=== PATIENT | male | born 1950 | race Two or more races ===

== ENCOUNTER → 2022-07-27 08:49 | Outpatient (BNVA) | payer OTHER, SELFPAY | PROVIDERS: PCP Internal Medicine; Visit Provider Psychiatry & Neurology Neurology | DX: R25.1 Tremor, unspecified (principal) | CPT/HCPCS: 99202 ==

== ENCOUNTER 2022-10-20 08:39 | Outpatient (REF) | payer OTHER, SELFPAY ==
--- NOTE | ~2022-10-20 | MR_ITS ---
EXAMINATION: MR BRAIN WITHOUT CONTRAST CLINICAL INFORMATION: Tremor COMPARISON: None TECHNIQUE: Multiplanar multisequence MR imaging of the brain was obtained without intravenous contrast. FINDINGS: There is no acute infarct on diffusion-weighted imaging. There is no intracranial hemorrhage on iron-sensitive imaging. No extra-axial collection or mass effect/herniation. Scattered periventricular and deep white matter T2 FLAIR hyperintensities consistent with mild underlying microangiopathy. No hydrocephalus. The ventricles are normal in morphology and size. The major flow voids at the skull base are preserved. The midline structures are normal. The cerebellar tonsils are normally positioned. The craniocervical junction is normal. Marrow signal is within normal limits. The visualized soft tissues are without significant abnormality. No signal abnormality within the paranasal sinuses or within the mastoid air cells. MR/MR head/brain wo con IMPRESSION: Mild chronic white matter microangiopathy. Otherwise unremarkable noncontrast MRI of the brain.
== END 2022-10-20 08:40 | disposition home or self-care (01) ==
LOC: HO.MRI 08:39
PROVIDERS: PCP Internal Medicine; Visit Provider Psychiatry & Neurology Neurology
DX: R25.1 Tremor, unspecified (principal)
CPT/HCPCS: 70551

== ENCOUNTER → 2022-10-28 08:52 | Outpatient (BNVA) | payer OTHER, SELFPAY | PROVIDERS: PCP Internal Medicine; Visit Provider Psychiatry & Neurology Neurology | DX: R25.1 Tremor, unspecified (principal) | CPT/HCPCS: 99212 ==

== ENCOUNTER 2023-08-06 13:47 | Outpatient (AMB) | payer OTHER, SELFPAY ==
--- NOTE | 2023-08-06 14:10 | A.OFFVIS_ITS ---
Intake Vital Signs 08/06/23 14:11 Height 5 ft 6 in Weight 214 lb BMI 34.5 BP 150/82 H Blood Pressure Location Rt brachial Position Sitting Respiration 17 Pulse 82 Pulse Source Pulse Oximeter Pulse Oximetry (%) 97 Oxygen Delivery Method Room Air Intake Visit Reasons: 3m Progressive vince hand/CONF Intake Note: Pt presents to the office for 3 month follow up for tremors. Supervisor Pipe Finishing Required: No Allergies No Known Allergies Allergy (Verified 08/06/23 14:10) Medication List - Last Reconciled 08/06/23 by Yamileth Adam MD aspirin 81 mg PO DAILY omega-3 fatty acids 1,000 mg PO DAILY rasagiline 1 mg PO DAILY simvastatin 20 mg PO BEDTIME tamsulosin 0.4 mg PO DAILY valsartan 320 mg PO DAILY HPI HPI Comments History of Present Illness Details 73y/o right handed male comes for follow up of tremor predominant Parkinsons disease. His SHAYLA scan was positive for Parkinsons. He started noticing tremors in bilateral hands and legs ( milder ) about 3 years ago but noticed increased severity in the pats 1 year.The left UE tremors are worse.The tremors are mostly at rest.He has difficulty holding a cup of coffee.No change in his voice, memory, sleep. He has occasional drooling. He cannot write anymore. He has trouble using fork . He can dress , shower with no issues. His denies any major gait issues or falls. No hallucinations , nausea, dizziness, diplopia. He has constipation.He denies neck or back pain. His father had tremors when older. He denies head injury. [facility] Medical History (Updated 08/06/23 @ 14:21 by Yamileth Adam MD) Parkinson's disease without dyskinesia Adenomatous colon polyp Diverticulosis Hyperlipidemia HTN (hypertension) BPH (benign prostatic hyperplasia) Pulmonary nodule Aortic aneurysm Surgical History H/O transurethral resection of prostate H/O hernia repair H/O colonoscopy Family History Father HTN (hypertension) Social History Alcohol intake: current Patient Tobacco Use Status: Never used Tobacco Physical Exam Vital Signs: Last Vital Signs Pulse 82 08/06/23 14:11 Resp 17 08/06/23 14:11 BP 150/82 H 08/06/23 14:11 Pulse Ox 97 08/06/23 14:11 Oxygen Delivery Method Room Air 08/06/23 14:11 BMI result Body Mass Index 34.5 Const General: cooperative, healthy appearing and comfortable Nutritional Appearance: overweight Orientation/consciousness: patient oriented x3 Eyes Pupils: Equal, round and reactive pupils present Neuro Other: Left UE high amplitude rest tremors , mild postural and action FFM decreased milldy L>R vince cog wheel rigidity 2 Foot taps mildly decreased Mild decreased blink and facial expression General: patient oriented x3, moves all extremities and no focal motor deficits Cranial nerves: Yes Facial sensation intact/muscles of mastication intact, Yes Equal, round and reactive pupils present, Yes Bilaterally intact EOM present, Yes Nystagmus not present, Yes Normal facial strength present, Yes Midline tongue present and Yes Ability to bilaterally elevate shoulders present Cognition (Neuro): normal cognition Gait exam (Neuro): Other gait observations present (decreased arm swings L>R) Motor exam (neuro): 5/5 motor strength present throughout Coordination: [id number]-[id number] test normal Assessment & Plan Assessment & Plan (1) Parkinson's disease without dyskinesia: Comment: Tremors predominant - Left UE Code(s): G20.A1 - Parkinson's disease without dyskinesia, without mention of fluctuations Plan Continue rasagilline 1mg qd I will retrial him on carbidopa/levodopa 25/100 tid Medications: New carbidopa-levodopa 25-100 mg (Sinemet) 1 tab PO TID 90 tabs 3RF Coding Level of Care Code Est Pt Level 4 (29926) Diagnoses Parkinson's disease without dyskinesia G20.A1
[2023-08-06 14:11] VITALS: BP 150/82; PULSE 82; RESP 17; O2SAT 97; BMI 34.5
== END 2023-08-06 14:32 | disposition home or self-care (01) ==
PROVIDERS: PCP Internal Medicine; Visit Provider Psychiatry & Neurology Neurology
DX: G20.A1 Parkinson's disease without dyskinesia, without mention of fluctuations (principal)
CPT/HCPCS: 99214

== ENCOUNTER → 2023-08-06 13:47 | Outpatient (BNVA) | payer OTHER, SELFPAY | PROVIDERS: PCP Internal Medicine; Visit Provider Psychiatry & Neurology Neurology | DX: G20.A1 Parkinson's disease without dyskinesia, without mention of fluctuations (principal) | CPT/HCPCS: 99212 ==

== ENCOUNTER 2024-08-21 10:10 | Outpatient (AMB) | payer OTHER, SELFPAY ==
--- NOTE | 2024-08-21 10:14 | A.OFFVIS_ITS ---
Vital Signs 08/21/24 10:16 Height 5 ft 6 in Weight 214 lb BMI 34.5 BP 134/82 Blood Pressure Location Rt brachial Position Sitting Pulse 88 Pulse Source Pulse Oximeter Pulse Oximetry (%) 98 Oxygen Delivery Method Room Air Intake Visit Reasons: 2 month F/U Intake Note: patient following up on med trial carbidopa levodopa. Gas Main Fitter Helper Required: Yes Gas Main Fitter Helper Services: Gas Main Fitter Helper Offered & Declined Gas Main Fitter Helper Name: Kayla Daughter Allergies No Known Allergies Allergy (Verified 08/21/24 10:16) HPI Comments Details: 74y/o right handed male comes for follow up of tremor predominant Parkinsons kathia khang. His SHAYLA scan was positive for Parkinsons. He does not think his tremors have improved with medications. History from last visit- He started noticing tremors in bilateral hands and legs ( milder ) about 3 years ago but noticed increased severity in the pats 1 year.The left UE tremors are worse.The tremors are mostly at rest.He has difficulty holding a cup of coffee.No change in his voice, memory, sleep. He has occasional drooling. He cannot write anymore. He has trouble using fork . He can dress , shower with no issues. His denies any major gait issues or falls. No hallucinations , nausea, dizziness, diplopia. He has constipation.He denies neck or back pain. His father had tremors when older. He denies head injury. [facility] Medical History Parkinson's disease without dyskinesia Adenomatous colon polyp Diverticulosis Hyperlipidemia HTN (hypertension) BPH (benign prostatic hyperplasia) Pulmonary nodule Aortic aneurysm Surgical History H/O transurethral resection of prostate H/O hernia repair H/O colonoscopy Family History Father HTN (hypertension) Social History Alcohol intake: current Patient Tobacco Use Status: Never used Tobacco Physical Exam Vital Signs: Last Vital Signs Pulse 88 08/21/24 10:16 BP 134/82 08/21/24 10:16 Pulse Ox 98 08/21/24 10:16 Oxygen Delivery Method Room Air 08/21/24 10:16 BMI result Body Mass Index 34.5 Const General: cooperative, healthy appearing and comfortable Nutritional Appearance: overweight Orientation/consciousness: patient oriented x3 Eyes Pupils: Equal, round and reactive pupils present Neuro Other: Left UE high amplitude rest tremors , mild postural and action FFM decreased milldy L>R vince cog wheel rigidity 2 Foot taps mildly decreased Mild decreased blink and facial expression General: patient oriented x3, moves all extremities and no focal motor deficits Cranial nerves: Yes Facial sensation intact/muscles of mastication intact, Yes Equal, round and reactive pupils present, Yes Bilaterally intact EOM present, Yes Nystagmus not present, Yes Normal facial strength present, Yes Midline tongue present and Yes Ability to bilaterally elevate shoulders present Cognition (Neuro): normal cognition Gait exam (Neuro): Other gait observations present (decreased arm swings L>R) Motor exam (neuro): 5/5 motor strength present throughout Coordination: [id number] test normal Assessment & Plan Assessment & Plan (1) Parkinson's disease without dyskinesia: Comment: Tremors predominant - Left UE Code(s): G20.A1 - Parkinson's disease without dyskinesia, without mention of fluctuations Category: Medical Qualifiers: Fluctuating manifestations: without fluctuating manifestations Qualified Code(s): G20.A1 - Parkinson's disease without dyskinesia, without mention of fluctuations Plan Continue rasagilline 1mg qd Increase carbidopa/levodopa 25/100 2 tabs tid Refer to for eval for DBS Discussed about MRI guided Ultrasound therapy - will refer to [place] Orders: Referrals Neurosurgery Referral G20.A1 - Parkinson's disease without dyskinesia, without mention of fluctuations Neurosurgery Referral G20.A1 - Parkinson's disease without dyskinesia, without mention of fluctuations Medications: Changed From carbidopa-levodopa 25-100 mg (Sinemet) 1 tab PO TID 90 tabs 3RF To carbidopa-levodopa 25-100 mg (Sinemet) 2 tabs PO TID 180 tabs 3RF Coding Level of Care Code Est Pt Level 4 (43247) Complex EM visit Add On G2211 Diagnoses Parkinson's disease without dyskinesia or fluctuating manifestations G20.A1 Fluctuating manifestations: without fluctuating manifestations
[2024-08-21 10:16] VITALS: BP 134/82; PULSE 88; O2SAT 98; BMI 34.5
--- OUTSIDE RECORDS SUMMARY | 2024-08-21 11:33 | XMS_ITS | Clinical Summary ---
Author Organization [address] Address [address], [place] Phone Care Team Providers Care Shafting Cleaner Name Role Phone Tiffany Gray Primary Care Provider [phone] Allergies No known active allergies Medications rasagiline (AZILECT) 1 mg tablet Take 1 Tablet by mouth daily. Active simvastatin (ZOCOR) 20 mg tablet Take 1 Tablet by mouth at bedtime. 02/03/2024 Active tamsulosin (FLOMAX) 0.4 mg 24 hr capsule Take 0.4 mg by mouth at bedtime. 12/25/2021 Active aspirin 81 mg EC tablet Take 1 Tab by mouth daily. 05/05/2019 Active ASCORBIC ACID, VITAMIN C, ORAL Take?by mouth daily. Active carbidopa-levodo pa (SINEMET) 25-100 mg per tablet Take 1 tablet by mouth. 04/04/2024 Active amLODIPine-valsa rtan (EXFORGE) 5-320 mg per tablet Take 1 tablet by mouth 1 (one) time each day. Take 1 Tablet by mouth daily. 30 each 2 04/13/2024 Active omega-3 acid ethyl esters (LOVAZA) 1 gram capsule Take 2,000 mg by mouth daily. 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 Santos - 07/22/15 - cystoscopy at next visit, ultrasound to rule out nephrolithiasis, PSA pending; follow-up 6 weeks 08/23/15 - no new findings on cystoscopy, Flomax and Proscar prescribed, urodynamic studies ordered, consider TURP 09/16/15 - continue with TURP as scheduled 10/11/15 - TURP performed 12/02/15 - Cipro 500 mg twice a day for 10 days, follow-up 2-3 weeks 12/19/15 - urine studies ordered, follow-up 6 weeks 01/28/16 - dysuria resolved, followup in [address] Santos 08/20/16 - cut down coffee intake; follow-up 6 months 02/25/17 - consider sleep study, follow-up one year 03/07/18 - doing well, PSA pending, follow-up one year if stable 03/16/2019 - good bladder emptying, follow-up 1 year Diverticulosis 04/10/2015 Overview (02/28/2024): Colonoscopy 06/21/2014 Hernia of abdominal cavity 09/25/2014 Tubular adenoma of colon 06/26/2014 Overview (02/28/2024): 06/24 - repeat colonoscopy recommended in 5 years 06/29 - colonoscopy, repeat in 5 years HTN (hypertension) 10/31/2013 Hyperlipidemia 10/31/2013 Encounters Date Type Department Care Team Description 07/18/2024 Telephone Internal Medicine - [facility] [address] [facility] [place] [address] Tiffany Gray DO prior auth from Last 3 Months Immunizations Name Administration Dates Next Due Influenza Quadravalent, MDCK , 0.5ml, preservative free (Flucelvax) 6mo and older 2022 Influenza trivalent, 0.5mL ( Fluad) 65yo and older 06/14/2023,04/15/2021,02/09/2020,04/19,02/28/2018,02/22/2017 Influenza trivalent, 0.5mL, preservative free (Fluarix; FluLaval; Fluzone) ages 6mo and older (Afluria) 3 years and older 02/10/2016,02/04/2015,03/08/2014 Pfizer SARS-CoV-2 COVID-19, mRNA, LNP-S, preservative free 02/14/2021,08/08/2020,07/18/2020 Pneumococcal conjugate 13 va lent (Prevnar 13, PCV13) 2mo and older 08/28/2016,02/10/2016 Pneumococcal polysaccharide 23 valent (Pneumovax 23) 2yo and older 03/08/2014 Tdap Tetanus diptheria acell ular pertussis (Boostrix; Adacel) 7yo and older 03/08/2014 Zoster Live 03/08/2014 Surgical History Surgery Date Site/Laterality Comments OTHER SURGICAL HISTORY PROCEDURE: ---- OTHER ----; COMMENT: Low back surgery COLONOSCOPY 2014 PROCEDURE: HISTORICAL COLONOSCOPY; COMMENT: colon polyp, diverticulosis OTHER SURGICAL HISTORY 10/11/15 PROCEDURE: ---- OTHER ----; COMMENT: TURP HERNIA REPAIR 10/27/2016 Bilateral PROCEDURE: HISTORICAL HERNIA REPAIR/ING OTHER SURGICAL HISTORY 02/10/2018 PROCEDURE: ---- OTHER ----; COMMENT: Eyelid surgery Medical History Medical History Date Comments HTN (hypertension) 10/31/2013 DX:HTN (hyper tension) Hyperlipidemia 10/31/2013 DX:Hyperlipidemi a Hernia of abdominal cavity 09/25/2014 DX:He rnia of abdominal cavity Diverticulosis 04/10/2015 DX:Diverticulosi s; COMMENT: Colonoscopy 06/21/2014 Tubular adenoma of colon 06/26/2014 DX:Tubu lar adenoma of colon; COMMENT: 06/24 - repeat colonoscopy recommended in 5 years 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 DX:C oncealed accessory pathway Family History Medical History Relation Name Comments No Known Problems Father No Known Problems Mother Relation Name Status Comments Father (Age 78) HTN Mother (Age 93) Healthy Social History Tobacco Use Types Packs/Day Years Used Date Smoking Tobacco: Never Smokeless Tobacco: Never Tobacco Cessation:Counseling Given: Not Answered Alcohol Use Standard Drinks/Week Comments No 0 (1 standard drink = 0.6 oz pur e alcohol) Sex and Gender Information Value Date Recorded Sex Assigned at Not on file Legal Sex Male 8:26 AM EST Gender Identity Not on file Sexual Orientation Not on file Obstetrics History Last Filed Vital Signs Vital Sign Reading Time Taken Comments Blood Pressure 135/82 04/13/2024 11:17 AM EST au to Pulse 88 04/13/2024 11:17 AM EST Temperature - - Respiratory Rate - - Oxygen Saturation - - Inhaled Oxygen Concentration - - Weight 100 kg (220 lb 9.6 oz) 04/13/2024 11:17 A M EST Height 167.6 cm (5' 6 ) 04/13/2024 11:17 AM EST Body Mass Index 35.61 04/13/2024 11:17 AM EST Plan of Treatment Upcoming Encounters Date Type Department Care Team (Late st Contact Info) Description 09/20/2024 10:30 AM EDT Appointment [facility] Endoscopy [address] [place] [address] Aramis Barragan DO [address] [facility] [address] [place] [address] 10/12/2024 11:00 AM EDT [facility] [address] [place] [address] Tiffany Gray DO [address] [place] [address] Health Maintenance Due Date Last Done Comments Depression Screening 04/18/2022 Falls Risk Assessment 04/18/2022 Medicare Annual Wellness Visit 04/18/2022 Social Influencers of Health Screening 04/18/2022 RSV Immunization Adult Patients (1 - 1-dose 75+ series) 2023 COVID-19 Vaccine ( season) 2024 02/14/2021, 08/08/2020, 07/18/2020 DTaP,Tdap,and Td Vaccines (2 - Td or Tdap) 03/08/2024 03/08/2014 Colorectal Cancer Screening: Colonoscopy 06/12/2024 06/12/2019, 06/21/2014 Influenza Vaccine (Season Ended) 2025 06/14/2023, 2022, 04/15/2021, Additional history exists Hypertension/CHF/CAD Annual BMP Blood Test 04/13/2025 04/13/2024, 07/13/2023 Cholesterol Screening (Lipid Panel) 2027 2022 Hepatitis C Screening Completed 03/07/2014 Pneumococcal Vaccine: 50+ Years Completed 08/28/2016, 02/10/2016, 03/08/2014 Zoster Vaccines Completed 12/22/2022, 11/2022, 03/08/2014 HIB Vaccines Aged Out No longer eligi ble based on patient's age to complete this topic HPV Vaccines Aged Out No longer eligi ble based on patient's age to complete this topic Hepatitis A Vaccines Aged Out No long er eligible based on patient's age to complete this topic Hepatitis B Vaccines Aged Out No long er eligible based on patient's age to complete this topic IPV Vaccines Aged Out No longer eligi ble based on patient's age to complete this topic MMR Vaccines Aged Out No longer eligi ble based on patient's age to complete this topic Meningococcal ACWY Vaccine Aged Out N o longer eligible based on patient's age to complete this topic Meningococcal B Vaccine Aged Out No l onger eligible based on patient's age to complete this topic RSV Immunization Patients Under 20 months Aged Out No longer eligible based on patient's age to complete this topic Varicella Vaccines Aged Out No longer eligible based on patient's age to complete this topic Procedures Procedure Name Priority Date/Time Associated Diagnosis Comments BASIC METABOLIC PANEL Routine 04/13/2024 12:16 PM EST Hypertension, unspecified type LIPID PANEL Routine 2022 COLONOSCOPY Routine 06/12/2019 HEPATITIS C SCREENING Routine 03/07/2014 from Last 3 Months or Most Recently Relevant to Health Maintenance Results * (ABNORMAL) Basic metabolic panel (04/13/2024 12:16 PM EST) Sodium 142 133 - 145 mmol/L LAB CHEMISTRY METHOD 04/13/2024 3:44 PM [facility] Potassium 4.3 3.5 - 5.5 mmol/L LAB CHEMISTRY METHOD 04/13/2024 3:44 PM [facility] Chloride 109 96 - 110 mmol/L LAB CHEMISTRY METHOD 04/13/2024 3:44 PM [facility] CO2 28 21 - 32 mmol/L LAB CHEMISTRY METHOD 04/13/2024 3:44 PM [facility] Anion Gap 5 3 - 11 LAB CHEMISTRY METHOD 04/13/2024 3:44 PM [facility] Glucose 105(H) 70 - 100 mg/dL LAB CHEMISTRY METHOD 04/13/2024 3:44 PM [facility] BUN 20 5 - 25 mg/dL LAB CHEMISTRY METHOD 04/13/2024 3:44 PM [facility] Creatinine 1.06 0.70 - 1.30 mg/dL LAB CHEMISTRY METHOD 04/13/2024 3:44 PM [facility] eGFR 73 >=60 mL/min/1. 73m2 LAB CHEMISTRY METHOD 04/13/2024 3:44 PM [facility] Comment:Calculation based on the??Chronic Kidney Disease Epidemiology Collaboration (CKD-EPI) equation refit??without adjustment for race. BUN/Creatinine Ratio 18.9 LAB CHEMISTRY METHOD 04/13/2024 3:44 PM [facility] Calcium 10.1 8.5 - 10.5 mg/dL LAB CHEMISTRY METHOD 04/13/2024 3:44 PM [facility] Blood Venous blood specimen / Unknown Venipuncture / Unknown 04/13/2024 12:16 PM EST 04/13/2024 12:16 PM EST Tiffany Jaloudi DO LAB BLOOD ORDERABLES Final Res ult [facility] [address] [place] [address], * Lipid panel (2022) Pathologist [facility] LDL/HDL Ratio 3 0 - 4 Triglycerides 123 0 - 150 mg/dL Cholesterol 140 0 - 200 mg/dL HDL 51 >=40 mg/dL LDL Cholesterol 65 0 - 100 mg/dL Blood Venous blood specimen / Unknown Historical Provider MD LAB BLOOD ORDERABLES Dee l Result * Colonoscopy (06/12/2019) Pathologist [facility] Colonoscopy No interpretation with ,abstracted Anatomical Region Laterality Modality Other Historical Provider HEALTH MAINTENANCE Final Result * Hepatitis C Screening (03/07/2014) Pathologist [facility] Hepatitis C Screening Abstracted Historical Provider HEALTH MAINTENANCE Final Result from Last 3 Months or Most Recently Relevant to Health Maintenance Insurance [employer] MEDICARE Member Subscriber Plan / Payer (Ef fective 2024-Present) Name:Fausto Bhakta Relation to Subscriber:Self Name:Fausto Bhakta Payer ID:[id number] Group ID:[id number] Type:Not on file Address: [address] [facility] [place] [address] Care Teams Shafting Cleaner Relationship Specialty Start Date End Date Tiffany Gray DO [address] [place] [address] PCP - General 02/23/24
== END 2024-08-21 10:35 | disposition home or self-care (01) ==
LOC: HO.HSMS 10:11
PROVIDERS: PCP Internal Medicine; Visit Provider Psychiatry & Neurology Neurology
DX: G20.A1 Parkinson's disease without dyskinesia, without mention of fluctuations (principal)
CPT/HCPCS: 99214; G2211

== ENCOUNTER → 2024-08-21 10:10 | Outpatient (BNVA) | payer OTHER, SELFPAY | PROVIDERS: PCP Internal Medicine; Visit Provider Psychiatry & Neurology Neurology | DX: G20.A1 Parkinson's disease without dyskinesia, without mention of fluctuations (principal) | CPT/HCPCS: 99212 ==

== ENCOUNTER 2025-02-21 10:46 | Outpatient (AMB) | payer OTHER, SELFPAY ==
[2025-02-21 10:48] VITALS: BP 150/86; PULSE 72; O2SAT 95; BMI 36.7
--- NOTE | 2025-02-21 10:48 | A.OFFVIS_ITS ---
Vital Signs 02/21/25 10:48 Height 5 ft 6 in Weight 227 lb 2 oz BMI 36.7 BP 150/86 H Blood Pressure Location Rt brachial Position Sitting Pulse 72 Pulse Source Pulse Oximeter Pulse Oximetry (%) 95 Oxygen Delivery Method Room Air Intake Visit Reasons: 6 mnts f/u Intake Note: Follow up Parkinson's disease without dyskinesia, without mention of fluctuations, Tremor UE Concrete [employer] Mounted Required: Yes Concrete [employer] Mounted Services: Concrete [employer] Mounted Offered & Declined Concrete Mixer Loader Truck Mounted Name: Daughter to interprep Accompanied by: Daughter Allergies No Known Allergies Allergy (Verified 02/21/25 10:48) Medication List - Last Reconciled 02/21/25 by Yamileth Adam MD aspirin 81 mg PO DAILY carbidopa-levodopa 25-100 mg 2 tabs PO TID omega-3 fatty acids 1,000 mg PO DAILY rasagiline 1 mg PO DAILY simvastatin 20 mg PO BEDTIME tamsulosin 0.4 mg PO DAILY valsartan 320 mg PO DAILY HPI Comments Details: 74y/o right handed male comes for follow up of tremor predominant Parkinsons disease. His SHAYLA scan was positive for Parkinsons. He does not think his tremors have improved with medications.He still has tremors but is independent in all his ADLS . he was seen by at [facility] for possible DBS - he suggested to maximize his meds first. History from last visit- He started noticing tremors in bilateral hands and legs ( milder ) about 3 years ago but noticed increased severity in the pats 1 year.The left UE tremors are worse.The tremors are mostly at rest.He has difficulty holding a cup of coffee.No change in his voice, memory, sleep. He has occasional drooling. He cannot write anymore. He has trouble using fork . He can dress , shower with no issues. His denies any major gait issues or falls. No hallucinations , nausea, dizziness, diplopia. He has constipation.He denies neck or back pain. His father had tremors when older. He denies head injury. [facility] Medical History Parkinson's disease without dyskinesia Adenomatous colon polyp Diverticulosis Hyperlipidemia HTN (hypertension) BPH (benign prostatic hyperplasia) Pulmonary nodule Aortic aneurysm Surgical History H/O transurethral resection of prostate H/O hernia repair H/O colonoscopy Family History Father HTN (hypertension) Social History Alcohol intake: current Patient Tobacco Use Status: Never used Tobacco Physical Exam Vital Signs: Last Vital Signs Pulse 72 02/21/25 10:48 BP 150/86 H 02/21/25 10:48 Pulse Ox 95 02/21/25 10:48 Oxygen Delivery Method Room Air 02/21/25 10:48 BMI result Body Mass Index 36.7 Const General: cooperative, healthy appearing and comfortable Nutritional Appearance: overweight Orientation/consciousness: patient oriented x3 Eyes Pupils: Equal, round and reactive pupils present Neuro Other: Left UE high amplitude rest tremors , mild postural and action FFM decreased milldy L>R vince cog wheel rigidity 2 Foot taps mildly decreased Mild decreased blink and facial expression General: patient oriented x3, moves all extremities and no focal motor deficits Cranial nerves: Yes Facial sensation intact/muscles of mastication intact, Yes Equal, round and reactive pupils present, Yes Bilaterally intact EOM present, Yes Nystagmus not present, Yes Normal facial strength present, Yes Midline tong ue present and Yes Ability to bilaterally elevate shoulders present Cognition (Neuro): normal cognition Gait exam (Neuro): Other gait observations present (decreased arm swings L>R) Motor exam (neuro): 5/5 motor strength present throughout Coordination: [id number]-at-[id number] test normal Assessment & Plan Assessment & Plan (1) Parkinson's disease without dyskinesia: Comment: Tremors predominant - Left UE Code(s): G20.A1 - Parkinson's disease without dyskinesia, without mention of fluctuations Category: Medical Qualifiers: Fluctuating manifestations: without fluctuating manifestations Qualified Code(s): G20.A1 - Parkinson's disease without dyskinesia, without mention of fluctuations Plan Continue rasagilline 1mg qd carbidopa/levodopa 25/100 2 tabs tid for eval for DBS- notes for review he sleeps well and declines sleep study Medications: Refilled carbidopa-levodopa 25-100 mg 2 tabs PO TID 540 tabs 0RF rasagiline 1 mg PO DAILY 90 tabs 1RF Coding Level of Care Code Est Pt Level 4 (76078) Complex EM visit Add On G2211 Diagnoses Parkinson's disease without dyskinesia or fluctuating manifestations G20.A1 Fluctuating manifestations: without fluctuating manifestations
--- OUTSIDE RECORDS SUMMARY | 2025-02-21 12:59 | XMS_ITS | Clinical Summary ---
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 Active ASCORBIC ACID, VITAMIN C, ORAL Take by mouth daily. Active carbidopa-levod opa (SINEMET) 25-100 mg per tablet Take 1 tablet by mouth. 04/04/2024 Active omega-3 acid ethyl esters (LOVAZA) 1 gram capsule Take 2,000 mg by mouth daily. 90 capsule 1 07/17/2024 Active amLODIPine-vals pepe (EXFORGE) 5-320 mg per tablet Take 1 tablet by mouth 1 (one) time each day. Take 1 Tablet by mouth daily. 90 each 1 10/12/2024 5 Active aspirin 81 mg EC tablet Take 1 tablet (81 mg total) by mouth 1 (one) time each day. Take 1 Tab by mouth daily. 90 each 1 10/12/2024 5 Active simvastatin (ZOCOR) 20 mg tablet Take 1 tablet (20 mg total) by mouth at bedtime. at bedtime. 90 each 1 10/12/2024 5 Active tamsulosin (FLOMAX) 0.4 mg 24 hr capsule Take 1 capsule (0.4 mg total) by mouth 1 (one) time each day. Take 0.4 mg by mouth at bedtime. 90 each 1 10/12/2024 5 Active Active Problems Problem Noted Date Diagnosed Date Class 2 obesity 01/04/2023 Parkinson's disease ([facility] V24, [facility] V28) 0 01/04/2023 Ascending aortic aneurysm ([facility] V24) 07/23/19 Overview (02/28/2024): 4.4 cm, CT [...] Encounters Date Type Department Care Team Description 12/22/2024 Telephone Internal Medicine - [address] [place] [address] Tiffany Gray DO from Last 3 Months Immunizations Immunization Administration Dates Next Due Influenza Quadravalent, MDCK , 0.5ml, preservative free (Flucelvax) 6mo and older 2022 Influenza trivalent, 0.5mL ( Fluad) 65yo and older 06/14/2023,04/15/2021,02/09/2020,04/19,02/28/2018,02/22/2017 Influenza trivalent, 0.5mL, preservative free (Fluarix; FluLaval; Fluzone) ages 6mo and older (Afluria) 3 years and older 02/10/2016,02/04/2015,03/08/2014 Catmoji SARS-CoV-2 COVID-19, mRNA, LNP-S, preservative free 02/14/2021,08/08/2020,07/18/2020 [...] accessory pathway 08/07/2015 DX:C oncealed accessory pathway Parkinson's disease (tremor, stiffness, slow motion, unstable posture) ([facility] V24, [facility] V28) Family History Medical History Relation Name Comments No Known Problems Father No Known Problems Mother Relation Name Status Comments Father (Age 78) HTN Mother (Age 93) Healthy Social History Tobacco Use Types Packs/Day Years Used Date Smoking Tobacco: Never Smokeless Tobacco: Never Tobacco Cessation:Counseling Given: Not Answered Alcohol Use Standard Drinks/Week Comments No 0 (1 standard drink = 0.6 oz pur e alcohol) Interpersonal Safety Answer Date Record ed Physical Abuse Unrecognized value 09/20/2024 Verbal Abuse Unrecognized value 09/20/2024 Sex and Gender Information Value Date Recorded Sex Assigned at Not on file Legal Sex Male 8:26 AM EST Gender Identity Not on file Sexual Orientation Not on file Obstetrics History Last Filed Vital Signs Vital Sign Reading Time Taken Comments Blood Pressure 131/75 09/20/2024 11:29 AM EDT Pulse 75 09/20/2024 11:29 AM EDT Temperature 36.9 C (98.4 F) 09/20/2024 11:08 AM EDT Respiratory Rate 18 09/20/2024 11:29 AM EDT Oxygen Saturation 99% 09/20/2024 11:29 AM EDT Inhaled Oxygen Concentration - - Weight 97.1 kg (214 lb) 09/20/2024 10:44 AM EDT Height 167.6 cm (5' 6 ) 09/20/2024 10:44 AM EDT Body Mass Index 34.54 09/20/2024 10:44 AM EDT Plan of Treatment Upcoming Encounters Date Type Department Care Team (Late st Contact Info) Description 04/13/2025 9:30 AM EST Office Visit Internal Medicine - [address] [phone] Ruby Welch NP [address] [place] [id number] Health Maintenance Due Date Last Done Comments Medicare Annual Wellness Visit 04/18/2022 Social Influencers of Health Screening 04/18/2022 RSV Immunization Adult Patients (1 - 1-dose 75+ series) 2023 DTaP,Tdap,and Td Vaccines (2 - Td or Tdap) 03/08/2024 03/08/2014 Depression Screening 05/10/2024 COVID-19 Vaccine ( - season) 2025 02/14/2021, 08/08/2020, 07/18/2020 Influenza Vaccine (#1) 2025 , 2022, 04/15/2021, Additional history exists Falls Risk Assessment 09/20/2025 09/20/2024 Hypertension/CHF/CAD Annual BMP Blood Test 10/12/2025 10/12/2024, 04/13/2024, 07/13/2023 Cholesterol Screening (Lipid Panel) 2027 2022 Colorectal Cancer Screening: Colonoscopy 09/20/2029 09/20/2024, 06/12/2019, 06/21/2014 Hepatitis C Screening Completed 03/07/2014 Pneumococcal Vaccine: [...] Associated Diagnosis Comments BASIC METABOLIC PANEL Routine 10/12/2024 11:41 AM EDT Hypertension, unspecified type COLONOSCOPY Routine 09/20/2024 11:07 AM EDT Colon cancer screening LIPID PANEL Routine 2022 HEPATITIS C SCREENING Routine 03/07/2014 from Last 3 Months or Most Recently Relevant to Health Maintenance Results * (ABNORMAL) Basic metabolic panel (10/12/2024 11:41 AM EDT) Sodium 140 133 - 145 mmol/L LAB CHEMISTRY METHOD 10/12/2024 3:25 PM [facility] Potassium 4.1 3.5 - 5.5 mmol/L LAB CHEMISTRY METHOD 10/12/2024 3:25 PM [facility] Chloride 104 96 - 110 mmol/L LAB CHEMISTRY METHOD 10/12/2024 3:25 PM [facility] CO2 28 21 - 32 mmol/L LAB CHEMISTRY METHOD 10/12/2024 3:25 PM [facility] Anion Gap 8 3 - 11 LAB CHEMISTRY METHOD 10/12/2024 3:25 PM [facility] Glucose 103(H) 70 - 100 mg/dL LAB CHEMISTRY METHOD 10/12/2024 3:25 PM [facility] BUN 16 5 - 25 mg/dL LAB CHEMISTRY METHOD 10/12/2024 3:25 PM [facility] Creatinine 0.82 0.70 - 1.30 mg/dL LAB CHEMISTRY METHOD 10/12/2024 3:25 PM [facility] eGFR 91 >=60 mL/min/1. 73m2 LAB CHEMISTRY METHOD 10/12/2024 3:25 PM [facility] Comment:Calculation based on the Chronic Kidney Disease Epidemiology Collaboration (CKD-EPI) equation refit without adjustment for race. BUN/Creatinine Ratio 19.5 LAB CHEMISTRY METHOD 10/12/2024 3:25 PM EDT [facility] Calcium 10.1 8.5 - 10.5 mg/dL LAB CHEMISTRY METHOD 10/12/2024 3:25 PM EDT [facility] Blood Venous blood specimen / Unknown Venipuncture / Unknown 10/12/2024 11:41 AM EDT 10/12/2024 11:41 AM EDT Tiffany Gray DO LAB BLOOD ORDERABLES Final Res ult [facility] [address] [place] [address], * COLONOSCOPY Anesthesia - MAC; [facility] ENDOSCOPY (09/20/2024 11:07 AM EDT) Anatomical Region Laterality Modality Endoscopy 09/20/2024 10:4 6 AM EDT Impressions 09/20/2024 11:12 AM EDT - Hemorrhoids found on perianal exam. - The examination was otherwise normal on direct and retroflexion views. - No specimens collected. Recommendation: - Discharge patient to home. - High fiber diet. - Continue present medications. - Await pathology results. - Given personal history of pre-cancerous polyps, a repeat colonoscopy for surveillance in 5 years is recommended. Narrative 09/20/2024 11:12 AM EDT [facility] Patient Name: Fausto Bhakta Procedure Date: 09/20/2024 10:46 AM Date of : 1950 Age: 74 Gender: Male Note Status: Finalized Attending MD: Oswaldo Barragan DO, [id number] Procedure Date No Time: 09/20/2024 Procedure: Colonoscopy Indications: High risk colon cancer surveillance: Personal history of colonic polyps Providers: Oswaldo Barragan DO Referring MD: Tiffany Gray DO Medicines: Monitored Anesthesia Care Complications: No immediate complications. Estimated blood loss: None. Estimated Blood Loss: Estimated blood loss: none. Procedure: Pre-Anesthesia Assessment: - - Prior to the procedure, a History and Physical was performed, and patient medications and allergies were reviewed. The patient is competent. The risks and benefits of the procedure and the sedation options and risks were discussed with the patient. All questions were answered and informed consent was obtained. Patient identification and proposed procedure were verified by the physician, the nurse, the anesthesiologist, the hedis registered nurse rn and the die cast technician in the pre-procedure area in the endoscopy suite. Mental Status Examination: alert and oriented. Airway Examination: normal oropharyngeal airway and neck mobility. Respiratory Examination: clear to auscultation. CV Examination: normal. Prophylactic Antibiotics: The patient does not require prophylactic antibiotics. Prior Anticoagulants: The patient has taken no anticoagulant or antiplatelet agents. ASA Grade Assessment: II - A patient with severe systemic disease. After reviewing the risks and benefits, the patient was deemed in satisfactory condition to undergo the procedure. The anesthesia plan was to use monitored anesthesia care (MAC). Immediately prior to administration of medications, the patient was re-assessed for adequacy to receive sedatives. The heart rate, respiratory rate, oxygen saturations, blood pressure, adequacy of pulmonary ventilation, and response to care were monitored throughout the procedure. The physical status of the patient was re-assessed after the procedure. After I obtained informed consent, the scope was passed under direct vision. Throughout the procedure, the patient's blood pressure, pulse, and oxygen saturations were monitored continuously. The Olympus Pediatric Colonoscope was introduced through the anus and advanced to the cecum, identified by appendiceal orifice and ileocecal valve. The colonoscopy was performed without difficulty. The patient tolerated the procedure well. The quality of the bowel preparation was good. Findings: Hemorrhoids were found on perianal exam. The exam was otherwise without abnormality on direct and retroflexion views. Procedure Code(s): --- Professional --- G0105, Colorectal cancer screening; colonoscopy on individual at high risk Diagnosis Code(s): --- Professional --- Z86.010, Personal history of colonic polyps K64.9, Unspecified hemorrhoids CPT copyright 2020 [employer]. All rights reserved. The codes documented in this report are preliminary and upon traffic representative review may be revised to meet current compliance requirements. OSWALDO Barragan DO 09/20/2024 11:12:02 AM This report has been signed electronically.Oswaldo Barragan DO Number of Addenda: 0 Note Initiated On: 09/20/2024 10:46 AM Scope Withdrawal Time: 0 hours 9 minutes 0 seconds Scope In: 11:00:01 AM Scope Out: 11:10:52 AM Endoscopy Department at [facility] - [address] [place] [id number] Procedure Note Oswaldo Barragan DO - 09/20/2024 [facility] Patient Name: Fausto Bhakta Procedure Date: 09/20/2024 10:46 AM Date of : 1950 Age: 74 Gender: Male Note Status: Finalized Attending MD: Oswaldo Barragan DO, [id number] Procedure Date No Time: 09/20/2024 Procedure: Colonoscopy Indications: High risk colon cancer surveillance: Personalhistory of colonic polyps Providers: Oswaldo Barragan DO Referring MD: Tiffany Gray DO Medicines: Monitored Anesthesia Care Complications: No immediate complications. Estimated blood loss:None. Estimated Blood Loss: Estimated blood loss: none. Procedure: Pre-Anesthesia Assessment: - - Prior to the procedure, a History and Physicalwas performed, and patient medications and allergieswere reviewed. The patient is competent. The risks and benefits of the procedure and the sedation optionsand risks were discussed with the patient. Allquestions were answered and informed consent was obtained. Patient identification and proposed procedure were verified by the physician, the nurse, the anesthesiologist, the hedis registered nurse rn and thetechnician in the pre-procedure area in the endoscopy suite. Mental Status Examination: alert and oriented.Airway Examination: normal oropharyngeal airway and neck mobility. Respiratory Examination: clear to auscultation. CV Examination: normal. Prophylactic Antibiotics: The patient does not requireprophylactic antibiotics. Prior Anticoagulants: The patient has taken no anticoagulant or antiplatelet agents. ASA Grade Assessment: II - A patient with severesystemic disease. After reviewing the risks and benefits,the patient was deemed in satisfactory condition to undergo the procedure. The anesthesia plan was touse monitored anesthesia care (MAC). Immediately priorto administration of medications, the patient was re-assessed for adequacy to receive sedatives. The heart rate, respiratory rate, oxygen saturations, blood pressure, adequacy of pulmonary ventilation,and response to care were monitored throughout the procedure. The physical status of the patient was re-assessed after the procedure. After I obtained informed consent, the scope was passed under direct vision. Throughout theprocedure, the patient's blood pressure, pulse, and oxygen saturations were monitored continuously. TheOlympus Pediatric Colonoscope was introduced through theanus and advanced to the cecum, identified byappendiceal orifice and ileocecal valve. The colonoscopy was performed without difficulty. The patient tolerated the procedure well. The quality of the bowel preparation was good. Findings: Hemorrhoids were found on perianal exam. The exam was otherwise without abnormality ondirect and retroflexion views. Procedure Code(s): --- Professional --- G0105, Colorectal cancer screening; colonoscopy on individual at high risk Diagnosis Code(s): --- Professional --- Z86.010, Personal history of colonic polyps K64.9, Unspecified hemorrhoids CPT copyright 2020 [employer]. All rights reserved. The codes documented in this report are preliminary and upon traffic representative reviewmay be revised to meet current compliance requirements. OSWALDO Barragan DO 09/20/2024 11:12:02 AM This report has been signed electronically.Oswaldo Barragan DO Number of Addenda: 0 Note Initiated On: 09/20/2024 10:46 AM Scope Withdrawal Time: 0 hours 9 minutes 0 seconds Scope In: 11:00:01 AM Scope Out: 11:10:52 AM Endoscopy Department at [facility] - [address] [place] [id number] IMPRESSION: - Hemorrhoids found on perianal exam. - The examination was otherwise normal on directand retroflexion views. - No specimens collected. Recommendation: - Discharge patient to home. - High fiber diet. - Continue present medications. - Await pathology results. - Given personal history of pre-cancerous polyps, a repeat colonoscopy for surveillance in 5 years is recommended. us Antony Melendrez MD GI~PROCEDURE ORDERABLES Final Re sult * Lipid panel (2022) LDL/HDL Ratio 3 0 - 4 Triglycerides 123 0 - 150 mg/dL Cholesterol 140 0 - 200 mg/dL HDL 51 >=40 mg/dL LDL Cholesterol 65 0 - 100 mg/dL Blood Venous blood specimen / Unknown Historical Provider LAB BLOOD ORDERABLES Dee l Result * Hepatitis C Screening (03/07/2014) Hepatitis C Screening Abstracted Historical Provider HEALTH MAINTENANCE Final Result from Last 3 Months or Most Recently Relevant to Health Maintenance Insurance [employer] MEDICARE Member Subscriber Plan / Payer (Ef fective 2024-Present) Name:Fausto Bhakta Relation to Subscriber:Self Name:Fausto Kirk Payer ID:[id number] Group ID:[id number] Type:Not on file Address: [place] [address] [address] [id number] Care Teams Yard Switch Operator Relationship Specialty Start Date End Date Tiffany Gray DO [address] [place] [address] PCP - General 02/23/24
== END 2025-02-21 11:17 | disposition home or self-care (01) ==
LOC: HO.HSMS 10:47
PROVIDERS: PCP Internal Medicine; Visit Provider Psychiatry & Neurology Neurology
DX: G20.A1 Parkinson's disease without dyskinesia, without mention of fluctuations (principal)
CPT/HCPCS: 99214; G2211

== ENCOUNTER → 2025-02-21 10:46 | Outpatient (BNVA) | payer OTHER, SELFPAY | PROVIDERS: PCP Internal Medicine; Visit Provider Psychiatry & Neurology Neurology | DX: G20.A1 Parkinson's disease without dyskinesia, without mention of fluctuations (principal); I10 Essential (primary) hypertension; E78.5 Hyperlipidemia, unspecified; Z79.82 Long term (current) use of aspirin | CPT/HCPCS: 99212 ==